=== PATIENT | female | born 1960 | race Caucasian/White ===

== ENCOUNTER → 2019-06-16 10:36 | Outpatient (CLI) | payer BC, SELFPAY ==
--- NOTE | ~2019-06-16 | MM_ITS ---
EXAMINATION: MM screening han BI w ramon HISTORY: Screening mammogram TECHNIQUE: Craniocaudal and mediolateral oblique 3-D tomosynthesis images were obtained and synthetic 2-D images were generated. CAD analysis was submitted and interpreted. COMPARISON: 05/15/2018, 11/06/2012 bilateral digital screening mammogram examinations BREAST PARENCHYMAL COMPOSITION: The breasts are almost entirely fatty. FINDINGS: There is no evidence of suspicious mass, calcification, or architectural distortion to sugg est malignancy in either breast. There has been no suspicious interval change. IMPRESSION: 1. No mammographic evidence of malignancy. 2. Recommend routine screening mammography in one year. BI-RADS Category 1: Negative Reviewed, dictated and finalized at location A. NE AGENT
== END ==
PROVIDERS: PCP Family Medicine; Visit Provider Obstetrics & Gynecology
DX: Z12.31 Encounter for screening mammogram for malignant neoplasm of breast (principal)
CPT/HCPCS: 77063; 77067

== ENCOUNTER → 2022-06-21 12:23 | Outpatient (CLI) | payer BC, SELFPAY ==
--- NOTE | ~2022-06-21 | MM_ITS ---
EXAMINATION: MM screening han BI w ramon HISTORY: Screening mammogram TECHNIQUE: Craniocaudal and mediolateral oblique 3-D tomosynthesis images were obtained and synthetic 2-D images were generated. CAD analysis was submitted and interpreted. COMPARISON: June 16, 2019, May 15, 2018, November 06, 2012 bilateral screening mammogram examinatio ns BREAST PARENCHYMAL COMPOSITION: The breasts are almost entirely fatty. FINDINGS: There is no evidence of suspicious mass, calcification, or architectural distortion to sugg est malignancy in either breast. There has been no suspicious interval change. IMPRESSION: 1. No mammographic evidence of malignancy. 2. Recommend routine screening mammography in one year. BI-RADS Category 1: Negative Reviewed, dictated and finalized at location A. OMETER CALIBRATOR
== END ==
PROVIDERS: PCP Obstetrics & Gynecology; Visit Provider Obstetrics & Gynecology
DX: Z12.31 Encounter for screening mammogram for malignant neoplasm of breast (principal)
CPT/HCPCS: 77063; 77067

== ENCOUNTER 2025-01-23 20:16 | Emergency (ER) | payer OTHER, SELFPAY ==
[2025-01-23] VITALS (11 sets, daily range): BP systolic 168–171; BP diastolic 72–86; PULSE 98–136; RESP 14–25; TEMP 36.7; O2SAT 97–100
--- OUTSIDE RECORDS SUMMARY | 2025-01-23 20:18 | XMS_ITS | Encounter Summary ---
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 Gender Identity Not on file Sexual Orientation Not on file documented as of this encounter Plan of Treatment Not on file documented as of this encounter Procedures Procedure Name Priority Date/Time Associated Diagnosis Comments DERMATOPATHOLOGY Routine 02/18/2019 12:0 0 AM CDT documented in this encounter Results * DERMATOPATHOLOGY (02/18/2019 12:00 AM CDT) Case Report Dermatopathology Report Case: [id number] Authorizing Provider: Oscar Yuan MD Collected: 02/18/2019 12:00 AM Ordering Location: [facility] Lab Received: 02/19/2019 12:51 PM Pathologist: Marissa Long MD Specimen: Skin, right medial garcia 9 11:25 AM CDT DERMATOPATHOLOGY LABORATORY Final Diagnosis Specimen A. SKIN, right medial garcia: DERMATOFIBROMA (D23.9) 9 11:25 AM CDT DERMATOPATHOLOGY LABORATORY at 1125 CDT Clinical History R/O DF vs other. 11:25 AM CDT DERMATOPATHOLOGY LABORATORY Gross Description Specimen A: Received is one formalin filled container labeled with the patient's name and designated right medial garcia. The specimen consists of a punch biopsy measuring [id number], bisected. Jar 0. 11:25 AM CDT DERMATOPATHOLOGY LABORATORY Microscopic Description Specimen A. SKIN, right medial garcia: There is epidermal hyperplasia. Within the dermis, there are fibrohistiocytic cells in haphazard array among coarse collagen bundles. 11:25 AM CDT DERMATOPATHOLOGY LABORATORY Disclaimer An external and internal positive and negative controls are appropriate for the histochemical, immunohistochemical and immunofluorescence stain(s) in this case (if any), except where stated explicitly. The performance characteristics of the stain(s) cited in this report were developed and its performance characteristic determined by the Dermatopathology Laboratory at [facility], directed by Dr. Steven Michael. These tests need not be, and therefore are not, approved by the [place] Food and Drug Administration. The tests are used for clinical purposes. Billing Codes Specimen Charges Stain Charges 57478 1 11:25 AM CDT DERMATOPATHOLOGY LABORATORY Embedded Images 11:25 AM CDT DERMATOPATHOLOGY LABORATORY Pathology/Cytolog y TISSUE SPECIMEN FROM SKIN / Unknown 02/18/2019 02/19/2019 12:51 PM CDT Oscar Yuan MD LAB - PATHOLOGY/CYTOLOGY ORD ERABLES Final Result DERMATOPATHOLOGY LABORATORY [facility] - Department of Dermatology [address] [place] [address], [address]th [place] [address], [facility] [phone] documented in this encounter Visit Diagnoses Not on filedocumented in this encounter
--- OUTSIDE RECORDS SUMMARY | 2025-01-23 20:18 | XMS_ITS | Encounter Summary ---
Author Organization [facility] Address [address] [place] [place] [address] Care Team Providers Care Poultry Picker Name Role Phone Unavailable Primary Care Provider Unavailabl e Encounter Details Date Type Department Care Team (Late st Contact Info) Description 05/12/2022 Lab Requisition [facility] DermPath Lab [address] [facility] [place] [id number] Oscar Yuan MD [address] [place] [address] Social History Tobacco Use Types Packs/Day Years Used Date Smoking Tobacco: Never Assessed Comments Unknown Sex and Gender Information Value Date Recorded Sex Assigned at Not on file Legal Sex Female 6:40 PM SUPPLY CHAIN CONSULTANT Gender Identity Not on file Sexual Orientation Not on file documented as of this encounter Plan of Treatment Not on file documented as of this encounter Procedures Procedure Name Priority Date/Time Associated Diagnosis Comments DERMATOPATHOLOGY Routine 05/10/2022 12:0 0 AM SUPPLY CHAIN CONSULTANT documented in this encounter Results * DERMATOPATHOLOGY (05/10/2022 12:00 AM SUPPLY CHAIN CONSULTANT) Case Report Dermatopathology Report Case: [id number] Authorizing Provider: Oscar Yuan MD Collected: 05/10/2022 12:00 AM Ordering Location: [facility] DermPath Lab Received: 05/12/2022 06:51 AM Pathologist: Kira Quiroz MD Specimen: Skin, right ala groove 3 5:22 PM SUPPLY CHAIN CONSULTANT DERMATOPATHOLOGY LABORATORY Final Diagnosis Specimen A. SKIN, right ala groove: GRANULOMATOUS DERMATITIS CONSISTENT WITH A RUPTURED CYST OR HAIR FOLLICLE (L72.0) 3 5:22 PM SUPPLY CHAIN CONSULTANT DERMATOPATHOLOGY LABORATORY at 1722 SUPPLY CHAIN CONSULTANT Clinical History R/O Cyst vs Nevus vs Other neoplasm 3 5:22 PM [facility] DERMATOPATHOLOGY LABORATORY Gross Description Specimen A: Received is one formalin filled container labeled with the patient's name and designated right ala groove. The specimen consists of a punch biopsy measuring 6x6x4 mm. Jar 0. 3 5:22 PM [facility] DERMATOPATHOLOGY LABORATORY Microscopic Description Specimen A. SKIN, right ala groove: Neutrophils, histiocytes, and multinucleated giant cells are present within the dermis. 3 5:22 PM [facility] DERMATOPATHOLOGY LABORATORY Disclaimer An external and internal positive and negative controls are appropriate for the histochemical, immunohistochemical and immunofluorescence stain(s) in this case (if any), except where stated explicitly. The performance characteristics of the stain(s) cited in this report were developed and its performance characteristic determined by the Dermatopathology Laboratory at [facility], directed by Dr. Steven Michael. These tests need not be, and therefore are not, approved by the [place] Food and Drug Administration. The tests are used for clinical purposes. Billing Codes Specimen Charges Stain Charges 30571 1 3 5:22 PM [facility] DERMATOPATHOLOGY LABORATORY Embedded Images 3 5:22 PM [facility] DERMATOPATHOLOGY LABORATORY Pathology/Cytolog y TISSUE SPECIMEN FROM SKIN / Unknown 05/10/2022 05/12/2022 6:51 AM SUPPLY CHAIN CONSULTANT Oscar Yuan MD LAB - PATHOLOGY/CYTOLOGY ORD ERABLES Final Result DERMATOPATHOLOGY LABORATORY [facility] - Department of Dermatology [address] [place] [address], [facility] [phone] documented in this encounter Visit Diagnoses Not on filedocumented in this encounter
[2025-01-23] MEDS: RABIES VACCINE (RABAVERT) 2.5 UNITS VIAL IM (23:41)
[2025-01-23] MEDS: RABIES IMMUNE GLOBULIN/PF 1,500 UNITS/5 ML VIAL 1500 UNITS IM (23:43)
--- NOTE | 2025-01-23 23:58 | ED.ANIMALBIT ---
HPI - Animal Bite General Chief Complaint: Animal Bite Stated Complaint: possibly bit by a bat Time Seen by Provider: 01/23/25 22:14 Source: patient Mode of arrival: ambulatory Limitations: no limitations History of Present Illness HPI narrative: Patient is a 64-year-old female who presents the ED with concern for better exposure. Patient reports she was on a walk in her neighborhood and past by a house that had a very overgrown yd. She states she felt something swoop down next to her. She then felt a pinprick/bite to her right shoulder. She is concerned she may have been bit by a bat. She did not physically see a bat or other animal/bug. No other concerns. Related Data Home Medications ?Medication ?Instructions ?Recorded ?Confirmed ?Last Taken ?Type ospemifene 60 mg tablet (Osphena) 60 mg DAILY 04/30/19 04/11/21 Unknown History Allergies Allergy/AdvReac Type Severity Reaction Status Date / Time No Known Allergies Allergy Verified 04/11/21 11:21 Review of Systems Review of Systems: All systems reviewed & are unremarkable except as noted in HPI. All systems reviewed & are unremarkable except as noted in HPI and below PMFSH Past Medical History Medical History Vaginal atrophy Frequent UTI Social History Social History Smoking status: Never smoker Alcohol intake: never Gender identity (if verbalized by the patient): Female Exam Narrative: GENERAL: Well appearing, well-nourished, non-toxic, in no acute distress. HEAD: Normocephalic, atraumatic. RESPIRATORY: Airway patent, respirations nonlabored. CARDIOVASCULAR: Regular rate and rhythm MUSCULOSKELETAL: Moves all extremities. No gross deformities. No visible bite amor wounds to right deltoid region. SKIN: Warm, dry, normal color. NEURO: A&O X3. Speech clear. Cranial nerves II-XII grossly intact. Steady gait. No ataxic movements. PSYCHIATRIC: Anxious. Normal interaction. Course Vital Signs Vital signs: Vital Signs Temperature 98.1 F 01/23/25 20:18 Pulse Rate 136 H 01/23/25 20:18 Respiratory Rate 22 H 01/23/25 20:18 Blood Pressure 168/72 H 01/23/25 20:18 Pulse Oximetry 100 01/23/25 20:18 Oxygen Delivery Room Air 01/23/25 20:18 Temperature 98.1 F 01/23/25 20:18 Pulse Rate 99 01/23/25 23:30 Respiratory Rate 14 01/23/25 23:30 Blood Pressure 143/75 H 01/24/25 00:00 Pulse Oximetry 99 01/23/25 23:59 Oxygen Delivery Room Air 01/23/25 20:18 MDM - Animal Bite MDM Narrative Medical decision making narrative: Discussed case with Marla, infection control, advised okay to start rabies series. Will discuss with [facility] on Sunday to determine need to continue treatment. Patient given rabies immunoglobulin and 1st rabies vaccine in the ED. Advised to follow up with infection control for subsequent rabies vaccines. Given return precautions. Discharged in stable condition. Medical Records Attestation: I reviewed the patient's medical records. Discharge Plan Discharge Clinical Impression: Rabies, need for prophylactic vaccination against Patient Disposition: Home Condition: Stable Instructions: Antibiotic Form, Rabies (ED) Additional Instructions: Follow-up with infection control for subsequent rabies vaccines. Patient Language: Pashto Prescriptions: No Action Osphena 60 mg Tablet 60 mg DAILY cephalexin [Keflex] 500 mg capsule 500 mg PO Q12H 7 Days Qty: 14 0RF cdfunicf-qbofxuual-PD 3.5-10,000-1 mg/mL-unit/mL-% solution 4 drp LEFT EAR Q8H Qty: 10 0RF escitalopram oxalate [Lexapro] 20 mg tablet 20 mg PO DAILY Qty: 90 0RF Follow-up/Referrals: Sage Davison MD [Primary Care Provider, DYEING MACHINE BACK TENDER] Time of Disposition: 23:59
[2025-01-24] VITALS: BP 143/75; O2SAT 99
[2025-01-24 00:01] VITALS: BP 139/93; O2SAT 100
[2025-01-24 00:02] VITALS: O2SAT 99
== END 2025-01-24 00:15 | disposition home or self-care (01) ==
PROVIDERS: Emergency Provider Physician Assistant; PCP Obstetrics & Gynecology
DX: Z20.3 Contact with and (suspected) exposure to rabies (principal)
CPT/HCPCS: 90375; 90471; 90675; 96372; 99283